=== PATIENT | male | born 1985 | race Caucasian/White ===

== ENCOUNTER 2016-07-20 22:18 | Emergency (ER) | payer MEDICAID ==
[~2016-07-20] VITALS: Ht 170.2 cm; Wt 88.5 kg
[2016-07-20 22:27] VITALS: Ht 170.2 cm; Wt 88.5 kg
[2016-07-20] MEDS ORDERED: HYDR-906 PO (23:21)
[2016-07-20] MEDS ORDERED: CEPH-443 PO (23:21)
[2016-07-20] MEDS ORDERED: IBUP-1542 PO (23:21)
[2016-07-20] MEDS ORDERED: BACTDS PO (23:21)
--- NOTE | 2016-07-20 23:48 | ERD ---
ER Documentation Chief Complaint Date/Time DATE: 07/20/16 TIME: 23:35 Chief Complaint left [place] ingrown toe nail w/ pain HPI 31-year-old male presents here in emergency department for complaints of left big toe redness and swelling started today. Patient described the pain as throbbing pain, 6/10 scale, is worse upon touching the area. Patient did not take any medications of symptoms. Patient denies any trauma and affected area. Patient states that he feels that some of his toenail is ingrown. Patient denies any discharge coming from the area. Patient denies any fever or chills. ROS All systems reviewed and are negative except as per history of present illness. Medications Home Meds Active Scripts Hydrocodone/Acetaminophen (Clifton 5-325 Tablet) 1 Each Tablet, 1 TAB PO Q6H Y for SEVERE PAIN LEVEL 7-10, #7 TAB Prov:ANT HUTCHINS [employer] 07/20/16 Ibuprofen* (Motrin*) 600 Mg Tab, 600 MG PO Q6H Y for PAIN AND OR ELEVATED TEMP, #30 TAB Prov:ANT HUTCHINS NP 07/20/16 Cephalexin* (Keflex*) 500 Mg Capsule, 500 MG PO QID for 10 Days, CAP Prov:ANT HUTCHINS [employer] 07/20/16 Sulfamethoxazole-Trimethoprim* (Bactrim* DS) 800-160 Mg Tab, 1 TAB PO BID for 10 Days, TAB Prov:ANT HUTCHINS [employer] 07/20/16 Allergies Allergies: Coded Allergies: No Known Allergy (Unverified , 07/20/16) PMhx/Soc Medical and Surgical Hx: pt denies Medical Hx, pt denies Surgical Hx Hx Alcohol Use: No Hx Substance Use: No Hx Tobacco Use: No Smoking Status: Never smoker FmHx Family History: No coronary disease, No diabetes, No other Physical Exam Vitals Vital Signs Date Time Temp Pulse Resp B/P Pulse Ox O2 Delivery O2 Flow Rate FiO2 07/20/16 22:27 98.9 87 20 158/78 99 Physical Exam GENERAL: The patient is well developed and appropriate for usual state of health, in no apparent distress. CHEST: Clear to auscultation bilaterally. There are no rales, wheezes or rhonchi. HEART: Regular rate and rhythm. No murmurs, clicks, rubs or gallops. No S3 or S4. ABDOMEN: Soft, nontender and nondistended. Good bowel sounds. No rebound or guarding. No gross peritonitis. No gross organomegaly or masses. No Grady sign or McBurney point tenderness. BACK: No midline or flank tenderness. EXTREMITIES: Equal pulses bilaterally. There is no peripheral clubbing, cyanosis or edema. No focal swelling or erythema. Full range of motion. Grossly neurovascularly intact. NEURO: Alert and oriented. Cranial nerves 2-12 intact. Motor strength in all 4 extremities with 5/5 strength. Sensation grossly intact. Normal speech and gait. SKIN: Noted redness and swelling surrounding the left big toenail. Tenderness on palpation noted, no ingrown toenail noted. There is no apparent ecchymosis or petechia. The skin is warm and dry. HEMATOLOGIC AND LYMPHATIC: There is no evidence of excessive bruising or lymphedema. No gross cervical, axillary, or inguinal lymphadenopathy. Procedures/MDM Medical decision making: Patient symptoms was likely consistent with paronychia , infection surrounding the nail area. No symptoms of anything but do not this time, also patient was given antibiotics, was advised to see podiatry specialist for further evaluation, possibly if there is still ingrown toenail noted, that it will be removed. At this time, excision of the nail is not appropriate, patient has infection surrounding the area and there is risk for osteomyelitis if procedure is done. No symptoms of sepsis at this time. Patient appears well and is hemodynamically stable. Patient was given for Bactrim, Keflex, ibuprofen, Clifton, is advised to follow with primary care doctor in 2-3 days, see podiatry specialist, patient is advised to return to emergency department for any worsening symptoms. Departure Diagnosis: Primary Impression: Paronychia Laterality: left Qualified Code: L03.012 - Paronychia, left Condition: Stable Patient Instructions: Paronychia Ref[facility]: [facility] Usted se hoover hecho un examen mdico de control que le indica que no est en bella condicin que requiera tratamiento urgente en el Departamento de Emergencia. Un estudio ms profundo y el tratamiento de maldonado condicin pueden esperar sin ningn riesgo hasta que usted sea atendida/o en el consultorio de maldonado mdico o bella cl stacy. Es responsabilidad suya arreglar bella otoniel para el seguimiento del liv. MANEJO DE CONDICIONES NO URGENTES EN EL FUTURO 1) Si usted tiene un mdico de atencin primaria: Usted debera llamar a maldonado mdico de atencin primaria antes de venir al departamento de emergencia. Despus de las horas de consultorio, maldonado doctor o maldonado asociado/a est disponible por telfono. El mdico o enfermero de garrick en el servicio telefnico puede asesorarle por jaron medio para atender el problema, o liv contrario se puede programar bella otoniel. 2) Si usted no tiene un mdico de atencin primaria: Llame al mdico o clnica de referencia que aparece abajo dirk las horas de consultorio para hacer bella otoniel para que le vean. CLINICAS: [facility] [phone] [facility] [phone] [facility] [phone] [facility]. [facility] [phone] [facility] [place] [id number] [phone] [facility]. [phone] [address] [facility]. [facility] () Usted se hoover hecho un examen mdico de control que le indica que no est en bella condicin que requiera tratamiento urgente en el Departamento de Emergencia. Un estudio ms profundo y el tratamiento de maldonado condicin pueden esperar sin ningn riesgo hasta que usted sea atendida/o en el consultorio de maldonado mdico o bella cl stacy. Es responsabilidad suya arreglar bella otoniel para el seguimiento del liv. MANEJO DE CONDICIONES NO URGENTES EN EL FUTURO 1) Si usted tiene un mdico de atencin primaria: Usted debera llamar a maldonado mdico de atencin primaria antes de venir al departamento de emergencia. Despus de las horas de consultorio, maldonado doctor o maldonado asociado/a est disponible por telfono. El mdico o enfermero de garrick en el servicio telefnico puede asesorarle por jaron medio para atender el problema, o liv contrario se puede programar bella otoniel. 2) Si usted no tiene un mdico de atencin primaria: Llame al mdico o condado institucions de referencia que aparece abajo dirk las horas de consultorio para hacer bella otoniel para que le vean. SI USTED NO PUEDE PAGAR PARA LARRY UN MEDICO puede ir a: [facility] [address] [place] [address] [facility] [address] [place] [address] [facility] [address] [place] [address] [facility] [address] [place], [place] [id number] CUISIA,ANT Fraga NP Jul 20, 2016 23:46
== END 2016-07-20 23:52 | disposition home or self-care (01) ==
LOC: FTE 22:18
DX: L03.012 Cellulitis of left finger (principal)
CPT/HCPCS: 99284